=== PATIENT | male | born 1980 | race Caucasian/White ===

== ENCOUNTER 2018-06-12 06:13 | Observation (INO) | payer BC ==
[2018-06-12] MEDS ORDERED: IPRATROPIUM (NEB) 0.5 MG/2.5 ML AMP HHN (07:30)
[2018-06-12] MEDS ORDERED: MEPERIDINE 25 MG INJ IV (07:30)
[2018-06-12] MEDS ORDERED: ALBUTEROL 0.083% (NEB) 2.5 MG/3 ML AMP HHN (07:30)
[2018-06-12] MEDS ORDERED: EPHEDrine SULFATE 50 MG/5 ML SYG IV (07:30)
[2018-06-12] MEDS ORDERED: MIDAZOLAM 1 MG/ML 2 ML INJ IV (07:30)
[2018-06-12] MEDS ORDERED: hydrALAzine 20 MG INJ IV (07:30)
[2018-06-12] MEDS ORDERED: HYDROmorphONE 1 MG/5 ML IV SYRINGE IV ×2 (07:30)
[2018-06-12] MEDS ORDERED: TRIMETHOBENZAMIDE 100 MG/ML VIAL IM (07:30)
[2018-06-12] MEDS ORDERED: DIPHENHYDRAMINE 50 MG INJ IV (07:30)
[2018-06-12] MEDS ORDERED: LABETALOL HCL 20MG INJ IV (07:30)
[2018-06-12] MEDS ORDERED: FENTAnyl 50 MCG/ML VIAL IV ×3 (07:30)
[2018-06-12] MEDS ORDERED: ROCURONIUM 50 MG INJ (07:31)
[2018-06-12] MEDS ORDERED: CEFAZOLIN 1 GM INJ (07:31)
[2018-06-12] MEDS ORDERED: MIDAZOLAM 1 MG/ML 2 ML INJ (07:31)
[2018-06-12] MEDS ORDERED: PROPOFOL 20 ML (07:31)
[2018-06-12] MEDS ORDERED: NEOSTIGMINE 3 MG/3 ML SYRINGE (07:31)
[2018-06-12] MEDS ORDERED: GLYCOPYRROLATE 0.4 MG INJ (07:31)
[2018-06-12] MEDS ORDERED: ONDANSETRON 4 MG INJ (07:32)
[2018-06-12] MEDS ORDERED: DEXAMETHASONE 4 MG/ML 1 ML INJ (07:32)
[2018-06-12] MEDS: POLYMYXIN/BACITRACIN 1L IRRIG (08:09)
[2018-06-12] MEDS: THROMBIN 5000 UNIT VIAL (08:09)
[2018-06-12] MEDS: GELATIN SIZE 100 SPONGE (08:09)
[2018-06-12] MEDS: BUPIVACAINE 0.25%/EPI (SDV) 30 ML INJ (08:09)
[2018-06-12] MEDS: BETAMET NA PHOS/AC(6 MG/ML) 5ML INJ (09:06)
[2018-06-12] MEDS ORDERED: ACETAMINOPHEN 325 MG TAB PO (10:00)
[2018-06-12] MEDS ORDERED: NACL 0.9% 3 ML SYG IV (10:00)
[2018-06-12] MEDS ORDERED: PROCHLORPERAZINE 10 MG TAB PO (10:00)
[2018-06-12] MEDS ORDERED: ONDANSETRON 4 MG INJ IV (10:00)
[2018-06-12] MEDS ORDERED: NALOXONE (0.4 MG/ML) INJ IV (10:00)
[2018-06-12] MEDS ORDERED: AL HYDROX/MG HYDROX/SIMETH 30 ML CUP PO (10:00)
[2018-06-12] MEDS ORDERED: HYDROCODONE/APAP (5/325) TAB PO ×2 (10:00)
[2018-06-12] MEDS: HYDROmorphONE 1 MG/5 ML IV SYRINGE IV (10:19)
[2018-06-12] MEDS: ONDANSETRON 4 MG INJ IV (10:27)
[2018-06-13] MEDS ORDERED: DOCUSATE SODIUM 100 MG CAP PO (09:00)
== END 2018-06-12 09:50 | disposition home or self-care (01) ==
LOC: SDS 06:13 → REC 09:48
DX: M51.17 Intervertebral disc disorders with radiculopathy, lumbosacral region (principal)
CPT/HCPCS: 63030; 72100; 88304; 97161; 99217